=== PATIENT | female | born 1960 | race Caucasian/White ===

== ENCOUNTER → 2018-07-10 00:42 | Outpatient (CLI) | payer BC, SELFPAY ==
--- NOTE | 2018-07-10 09:04 | DI.REPORT_ITS ---
SYMPTOM/DIAGNOSIS: SCREENING, Z12.31 MAMMOGRAM: 07/10 Mammograms were interpreted according to the usual protocol including computer analysis with CAD system, tomosynthesis and C view imaging. The breasts are of moderate density with fairly symmetrical distribution of fibroglandular tissue. No dominant mass or clumped microcalcifications identified in either breast. The current examination is compared with previous examinations including May 2017 and there has been no gross interval change in appearance in comparison with the previous studies CONCLUSION: No specific evidence of malignancy at this time. Routine screening examinations are suggested at yearly intervals due to the family history of breast carcinoma. Category 1, breast density category B. MQSA ASSESSMENT OF FINDINGS: Negative. Category 1. Patient will receive a letter notifying them of these results. BI-RADS category B. There are scattered areas of fibroglandular density.
== END ==
PROVIDERS: PCP Family Medicine; Visit Provider Family Medicine
DX: Z12.31 Encounter for screening mammogram for malignant neoplasm of breast (principal); Z80.3 Family history of malignant neoplasm of breast
CPT/HCPCS: 77063; 77067

== ENCOUNTER 2019-05-23 09:11 | Emergency (ER) | payer BC, SELFPAY ==
[2019-05-23 09:15] VITALS: BP 136/80; PULSE 97; RESP 12; TEMP 36.8; O2SAT 100
--- NOTE | 2019-05-23 09:36 | W.ED.GENAD ---
Discharge Plan Disposition Patient Disposition: HOME Condition: Stable Discharge Details Chief Complaint: Allergic Clinical Impression: Bee sting reaction, Cellulitis Primary Care Provider: Mejia Peters ED Provider: Lorenza Gama Home Meds and New Rx's Prescriptions: New methylprednisolone [Medrol (Elías)] 4 mg tablets,dose pack See Rx Instructions .ROUTE .COMPLEX Qty: 21 RF: 0 amoxicillin-pot clavulanate [Augmentin] 875-125 mg tablet 1 tab PO BID 7 Days Qty: 14 RF: 0 Continued multivitamin [Once Daily] 1 EACH tablet 1 tab PO DAILY RF: 0 Discharge Instructions Instructions: Cellulitis (ED), Insect Bite or Sting (ED) Additional Instructions: Take the steroids and antibiotics until finished. Rest, ice and elevate right upper extremity several times daily for 20 minutes at at time. Call your primary care doctor Saturday morning to schedule follow-up appointment for reevaluation. Return immediately to the emergency department if you develop any worsening or new concerning symptoms of fever, chills, worsening redness, pain or swelling. Discharge Data Discharge Physician: Lorenza Gama Medical Decision Making 59-year-old female presents with redness, swelling and pain in her right wrist and forearm near an area of a bee sting 2 days ago. Denies any fever, chills. No foreign bodies noted to area. She has a mildly tender, blanching, erythematous, with faint irregular borders on right distal medial forearm extending from wrist to mid forearm. There are tiny small vesicles consistent with likely a contact dermatitis due to the Benadryl cream. No abscesses noted. No signs of compartment syndrome. Neurovascularly intact. No open wounds. Appears likely consistent with a local inflammation and now early cellulitis. Denies an allergy to amoxicillin or penicillin and states she has tolerated this in the past. We will send home with a prescription for Medrol Dosepak and Augmentin. Instructed on gentle hygiene care to area, rest, ice, elevate, follow-up with the primary care doctor for reevaluation and to return here if worse. Skin markings were placed around the edges of rash. HPI General Mode of arrival: ambulatory. Date/Time Provider Initiated Documentation: 05/23/19 09:25. Limitations to Documentation: no limitations. Information obtained by: patient. HPI Narrative: Patient is a 59-year-old female presents to the ED with a complaint of bee sting reaction to her right wrist and forearm since 2 bee stings 2 days ago. 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 Patient states she was able to remove both stingers. She states since the bee sting with she has developed worsening redness, swelling, itching and now has some pain around the area. She denies any fever, chills or body aches. She denies any other new exposures. She states she applied topical Benadryl cream and developed bumps in this area so stopped using it. Related Data Home Medications Medication Instructions Recorded Confirmed multivitamin [Once Daily] 1 tab PO DAILY 02/16/13 05/23/19 amoxicillin-pot clavulanate 1 tab PO BID 7 Days #14 tab 05/23/19 [Augmentin] methylprednisolone [Medrol (Elías)] See Rx Instructions .ROUTE 05/23/19 .COMPLEX #21 dose pk Previous Rx's Medication Instructions Recorded amoxicillin-pot clavulanate 1 tab PO BID 7 Days #14 tab 05/23/19 [Augmentin] methylprednisolone [Medrol (Elías)] See Rx Instructions .ROUTE 05/23/19 .COMPLEX #21 dose pk Allergies Allergy/AdvReac Type Severity Reaction Status Date / Time beeswax Allergy Severe Anaphylaxsi Unverified 05/23/19 09:17 s honey Allergy Severe Anaphylaxsi Unverified 05/23/19 09:17 s adhesive Allergy Intermediate Skin Rash Unverified 05/23/19 09:17 cephalexin [Cephalexin] Allergy Intermediate Skin Rash Unverified 05/23/19 09:17 chlordiazepoxide Allergy Intermediate Skin Rash Unverified 05/23/19 09:17 doxycycline Allergy Intermediate Skin Rash Unverified 05/23/19 09:17 codeine [Codeine] AdvReac Intermediate Hallucinati Unverified 05/23/19 09:17 ons General Stated Complaint: Allergic AGUSTINA: 4 Review of Systems Review of Systems All systems reviewed & are unremarkable except as noted in HPI and below Constitutional Reports as per HPI, Denies chills and Denies fever(s) Eyes Denies blurry vision ENT Denies dizziness, Denies sore throat and Denies throat swelling Cardiovascular Denies chest pain and Denies dyspnea Respiratory Denies cough and Denies dyspnea Gastrointestinal Denies abdominal pain, Denies diarrhea and Denies vomiting Genitourinary Denies hematuria and Denies dysuria Musculoskeletal Denies back pain and Denies numbness Integumentary/Breasts Reports lesions and Reports rash Neurologic Denies dizziness, Denies focal weakness and Denies numbness Allergic/Immunologic Denies throat swelling [facility] Medical History No significant past medical history (Acute) Surgical History Cervical Procedure Colonoscopy - IV Sedation (05/11/13) Tonsillectomy Family History Mother Diabetes Essential hypertension Depression Heart disease Hyperlipidemia Neoplasm Stroke Father Diabetes Essential hypertension Heart disease Hyperlipidemia Sister Diabetes Essential hypertension Depression Hyperlipidemia Grandfather Heart disease Grandfather Alcohol abuse Heart disease Grandmother Diabetes Essential hypertension Heart disease Hyperlipidemia Stroke Grandmother Diabetes Heart disease Neoplasm Daughter Heart disease Social History Smoking/Tobacco Use Status: Former Tobacco Use Drug use: Never Do you feel safe at home: Yes Do you feel safe in your relationship?: Yes Exam Const General: cooperative, healthy appearing and no acute distress HENMT Head: normal to inspection Mouth: oral mucosae normal Eyes General: appearance normal, both eyes and all related structures Neck Neck: normal visual inspection Resp Effort & Inspection: normal respiratory effort and able to speak in complete sentences Cardio Rate: regular rate Skin General skin exam: no rashes or lesions noted Neuro General: alert, awake and oriented x3 Motor: muscle tone normal throughout Extrem Elbow/forearm/wrist images: 1. Irregular borders, blanching, erythema, tender, minimally indurated. Minimal pustules c/w allergic/irritant dermatitis reaction on lateral aspect. 2. Irregular borders, blanching, erythema, tender, minimally indurated. Minimal pustules c/w allergic/irritant dermatitis reaction on lateral aspect Other: Compartments soft R forearm. Psych Appearance: grossly normal Affect: normal affect Course Vital Signs Temperature 98.2 F 05/23/19 09:15 Pulse 97 H 05/23/19 09:15 Respiratory Rate 12 05/23/19 09:15 Blood Pressure 136/80 05/23/19 09:15 Pulse Oximetry 100 05/23/19 09:15 Temperature 98.2 F 05/23/19 09:15 Temperature Source Temporal Artery Scan 05/23/19 09:15 Pulse 97 H 05/23/19 09:15 Respiratory Rate 12 05/23/19 09:15 Respiratory Effort Non-Labored 05/23/19 09:21 Respiratory Pattern Normal 05/23/19 09:21 Blood Pressure 136/80 05/23/19 09:15 Blood Pressure Position Sitting 05/23/19 09:15 Pulse Oximetry 100 05/23/19 09:15 Oxygen Delivery Method Room Air 05/23/19 09:15 Oxygen Flow Rate 0 05/23/19 09:15 Pain Level 3 05/23/19 09:15
== END 2019-05-23 09:49 | disposition home or self-care (01) ==
PROVIDERS: Emergency Provider Physician Assistant; PCP Family Medicine
DX: T63.441A Toxic effect of venom of bees, accidental (unintentional), initial encounter (principal); L03.113 Cellulitis of right upper limb
CPT/HCPCS: 99283

== ENCOUNTER 2019-09-29 00:38 | Outpatient (CLI) | payer BC, SELFPAY ==
--- NOTE | 2019-09-29 16:00 | DI.DEXA_ITS ---
EXAM: XR DEXA BONE DENSITY W/WO VANESSA INDICATION: screening for osteoporosis, Z13.820. COMPARISON: No exams were available for comparison TECHNIQUE: 2D digital imaging was performed. FINDINGS: The lateral spine shows no compression deformities. Evaluation of the left hip shows a total T-score of -0.1 and a Z-score of 0.7. This is within normal limits. Evaluation of the lumbar spine shows a total T-score of -0.7 and a Z-score of 0.5. This is also with in normal limits. IMPRESSION: No evidence of osteoporosis.
--- NOTE | 2019-09-29 16:15 | DI.MAMMO_ITS ---
EXAM: MG MAMMO SCREENING CLINICAL HISTORY: screening, Z12.39 TECHNIQUE: Bilateral full field digital CC and MLO mammographic images were obtained with 3D tomosyn thesis and utilizing computer aided detection (CAD). COMPARISON: Available for comparison. FINDINGS: Masses/Architectural Distortion: None seen. Microcalcifications: No suspicious pleomorphic-type are seen. Skin Thickening/Nipple Retraction: None. IMPRESSION: 1. No significant interval change with no specific features of malignancy noted. 2. Unless there is more urgent need, screening mammography is recommended, as per [place] [employer] guidelines. ACR BI-RAD Category- 1 Negative Breast Density - Category B - Scattered areas of fibroglandular density A negative radiographic report should not delay biopsy if a dominant or clinically suspicious mass is present. Up to ten percent of cancers are not identified on mammography. A negative report may reinforce clinical impression. Adenosis and dense breasts may obscure an underlying neoplasm. False positive reports average 6 to 10%. Patient will receive a letter notifying them of these results.
== END 2019-09-29 00:58 ==
PROVIDERS: PCP Family Medicine; Visit Provider Family Medicine
DX: Z12.31 Encounter for screening mammogram for malignant neoplasm of breast (principal); Z13.820 Encounter for screening for osteoporosis
CPT/HCPCS: 77063; 77067; 77080

== ENCOUNTER 2020-08-03 04:01 | Outpatient (CLI) | payer BC, SELFPAY ==
[2020-08-03 09:01] LABS: Anion Gap 5.4 mmol/L (3-11); BUN 18 mg/dL (7-18); CO2 31.6 mmol/L (21.0-32.0); CREATININE 0.82 mg/dL (0.55-1.02); Calcium 9.1 mg/dL (8.5-10.1); Calculated LDL 138 mg/dL (<100); Chloride 106 mmol/L (98-107); Cholesterol 242 mg/dL (<200); Glucose 94 mg/dL (74-106); HDL Cholesterol 95 mg/dL (40-60); Potassium 4.7 mmol/L (3.5-5.1); Sodium 143 mmol/L (136-145); Triglyceride 47 mg/dL (<150)
== END 2020-08-03 04:21 ==
PROVIDERS: PCP Nurse Practitioner; Visit Provider Family Medicine
DX: Z00.00 Encounter for general adult medical examination without abnormal findings (principal); Z13.220 Encounter for screening for lipoid disorders; Z13.228 Encounter for screening for other metabolic disorders
CPT/HCPCS: 36415; 80048; 80061

== ENCOUNTER 2020-08-04 01:14 | Outpatient (CLI) | payer BC, SELFPAY ==
--- NOTE | 2020-08-04 10:12 | DI.US_ITS ---
APPROVED REPORT EXAM: Comprehensive 2D, Doppler, and color-flow Echocardiogram Patient Location: Out-Patient Unit Coordinator: Alondra Herrera RDCS (AE) Indications: Aortic stenosis congenital Other Information Study Quality: Good Conclusion Left Ventricle : The left ventricle is normal size. The left ventricular systolic function is normal. The left ventricular ejection fraction is within the normal range. There is normal left ventricular wall thickness. There is normal LV segmental wall motion. LVEF is 56%. Right Ventricle : The right ventricle is normal size. The right ventricular systolic function is norm al. The RVSP is 20.9 mmHg. Atria : The left atrium size is normal. The right atrium size is normal. Aortic Valve : Aortic valve is bicuspid. No aortic regurgitation is present. There is no mild valvula r stenosis. Great Vessels : The aortic root is normal in size. The ascending aorta is moderately dilated (4.1cm). Aortic arch is normal in caliber. IVC is normal in size and collapses >50% with inspiration. Compared to prior echocardiogram, there is no significant change. Wall motion Left Ventricle The left ventricle is normal size. The left ventricular systolic function is normal. The left ventric ular ejection fraction is within the normal range. There is normal left ventricular wall thickness. T here is normal LV segmental wall motion. The left ventricular diastolic function is normal. There is no ventricular septal defect visualized. LVEF is 56%. Right Ventricle The right ventricle is normal size. The right ventricular systolic function is normal. The RVSP is 20 .9 mmHg. Atria The left atrium size is normal. The right atrium size is normal. The interatrial septum is intact wit h no evidence for an atrial septal defect. Aortic Valve Aortic valve is bicuspid. There is mild aortic valvular stenosis. No aortic regurgitation is present. Mitral Valve The mitral valve is normal in structure. No evidence of mitral valve stenosis. Trace mitral regurgita tion. Tricuspid Valve The tricuspid valve is normal in structure. There is no tricuspid valve stenosis. Trace tricuspid reg urgitation. Pulmonic Valve The pulmonary valve is normal in structure. There is no pulmonic valvular stenosis. Trace pulmonic re gurgitation. Great Vessels The aortic root is normal in size. The ascending aorta is moderately dilated (4cm). Aortic arch is no rmal in caliber. IVC is normal in size and collapses >50% with inspiration. Pericardium There is no pericardial effusion. 2D Dimensions IVSD d PLAX 0.82 cm F: 0.6-1.0 LV Vol A2C d MOD 92.2 mL LVPW d PLAX 0.81 cm F: 0.6 - 1.0 LV Vol A4C d MOD 118.3 mL LVID d PLAX 4.54 cm F: 3.8 - 5.2 LA vol/ BSA A2C s A-L 19.6 mL/m2 LVDs 3.15 cm F: 2.2 - 3.5 LA vol/ BSA A4C s A-L 15.0 mL/m2 Ao Root d 3.07 cm F: 2.7 - 3.3 LA Vol/ BSA Biplane s A-L 17.5 mL/m2 RA Area A4C 16.77 cm2 LA Area A4C s MOD 11.77 cm2 RA Vol/ BSA A4C s A-L 26.2 mL/m2 LA Area A2C s MOD 13.68 cm2 Ao Asc Diam d 4.10 cm F: 2.3 - 3.1 LV EF A4C MOD 56.1 % LV EF Teichholz 57.7 % LV EF A2C MOD 56.3 % LVEF (Hayward's) 57.42 % F: 54 - 74 LV EF Biplane MOD 57.4 % LV Volume 84.99 mL F: 46 - 106 SV 63.69 mL LV Volume Index 45.20 mL/m2 F: 29 - 61 SV Index 33.90 mL/m2 LV Vol Biplane MOD 110.9 mL FS 30.25 % M-Mode TAPSE 2.16 cm (M/F) >1.7 LV Diastology MV E' medial 0.076 (>0.07 m/s) E/A Ratio 0.7 LV E/e MED 7.30 (<14) MV E Vmax 0.56 (0.4-1.3 m/s) MV E' lateral 0.059 (>0.1 m/s) MV A Vmax 0.80 (0.4-1.3 m/s) LV E/e LAT 9.50 (<14) MV E/A Ratio 0.69 MV E/E' medial 7.32 MV E/E' lateral 9.52 Aortic Valve LVOT Area 3.16 cm2 AoV Area Vmax 1.60 cm2 LVOT Vmax 0.88 m/s AoV Area/ BSA (Vmax) 0.85 cm2/m2 LVOT Mean Omar. 0.57 m/s LOULOU Mean Omar. 1.38 cm2 LVOT Peak Grad 3.1 mmHg LOULOU Mean Omar. Index 0.73 cm2/m2 LVOT Mean Grad 1.5 mmHg LVOT VTI 0.195 m LVOT Diam s 2.00 cm AoV Vmax 1.74 m/s Velocity Ratio 0.50 AoV Mean Omar. 1.30 m/s AoV Peak Grad 12.1 mmHg LVOT SV 61.77 mL AoV Mean Grad 7.4 mmHg AoV VTI 0.392 m AoV Area VTI 1.58 cm2 AoV Area/ BSA (VTI) 0.84 cm/m2 Mitral Valve MV DT 232 (160-240 msec) MV PHT 67 msec MV Area PHT 3.27 cm2 Pulmonary Valve PV Vmax 0.74 (0.5-1.5 m/s) RVOT Peak Gr. 1.80 mmHg PV Peak Grad 2.2 mmHg RVOT Mean Gr. 0.90 mmHg PV Mean Grad 1.4 mmHg RVOT VTI 0.137 m PV VTI 0.158 m RVOT Vmax 0.67 m/s Tricuspid Valve TR Peak Grad 17.8 mmHg TR Vmax 2.11 m/s RA Pressure 3.00 mmHg RVSP (TR) 20.9 mmHg
== END 2020-08-04 01:34 ==
PROVIDERS: PCP Nurse Practitioner; Visit Provider Family Medicine
DX: I77.810 Thoracic aortic ectasia (principal); Q23.0 Congenital stenosis of aortic valve; Q23.1 Congenital insufficiency of aortic valve
CPT/HCPCS: 93306

== ENCOUNTER 2020-08-19 13:48 | Outpatient (REF) | payer BC, SELFPAY ==
[2020-08-22 14:57] LABS: Chlamydia Result Negative (Negative); GC Result Negative (Negative)
== END 2020-08-19 14:08 ==
LOC: LBN 13:48
PROVIDERS: PCP Nurse Practitioner; Visit Provider Physician Assistant
DX: R30.0 Dysuria (principal); N89.8 Other specified noninflammatory disorders of vagina
CPT/HCPCS: 87077; 87491; 87591; 87086; 87480; 87510; 87660

== ENCOUNTER 2020-09-06 22:16 | Outpatient (REF) | payer BC, SELFPAY | END 2020-09-06 22:36 | LOC: NCHCN 22:16 | PROVIDERS: PCP Nurse Practitioner; Visit Provider Physician Assistant | DX: N76.0 Acute vaginitis (principal); B96.89 Other specified bacterial agents as the cause of diseases classified elsewhere | CPT/HCPCS: 87480; 87510; 87660 ==

== ENCOUNTER 2020-10-11 01:29 | Outpatient (CLI) | payer BC, SELFPAY ==
--- NOTE | 2020-10-11 | DI.MAMMO_ITS ---
EXAM: MAMMO SCREENING CLINICAL HISTORY: SCREENING, Z12.39 TECHNIQUE: Mammograms were interpreted according to the usual protocol including computer analysis w [employer] CAD system, tomosynthesis and C-view imaging. COMPARISON: FINDINGS: Breasts are of moderate density with fairly symmetrical distribution of fibroglandular tissue. No do minant mass or clumped microcalcification is identified in either breast. The current examination is compared with prior studies including September 2019 and there has been no gross interval change in a ppearance in comparison with the previous examinations. IMPRESSION: No specific evidence of malignancy at this time. Routine screening examinations are suggested at yea rly intervals due to the family history of breast carcinoma. BI-RADS Category 1 - Negative Breast Density - Category B - Scattered areas of fibroglandular density
== END 2020-10-11 01:49 ==
PROVIDERS: PCP Nurse Practitioner; Visit Provider Obstetrics & Gynecology
DX: Z12.31 Encounter for screening mammogram for malignant neoplasm of breast (principal); Z80.3 Family history of malignant neoplasm of breast
CPT/HCPCS: 77063; 77067

== ENCOUNTER 2020-11-30 04:18 | Outpatient (CLI) | payer BC, SELFPAY ==
[2020-12-01 15:10] LABS: COVID-19 RT-PCR UVMMC Result Negative (Negative)
== END 2020-11-30 04:38 ==
PROVIDERS: PCP Nurse Practitioner; Visit Provider Nurse Practitioner
DX: Z20.822 Contact with and (suspected) exposure to COVID-19 (principal)
CPT/HCPCS: U0003

== ENCOUNTER 2021-10-17 01:28 | Outpatient (CLI) | payer BC, SELFPAY ==
--- NOTE | 2021-10-17 16:06 | DI.MAMMO_ITS ---
Exam(s) MAMMO SCREENING EXAM: MAMMO SCREENING CLINICAL HISTORY: SCREENING, Z12.31 TECHNIQUE: Bilateral full field digital CC and MLO mammographic images were obtained with 3D tomosyn thesis and utilizing computer aided detection (CAD). COMPARISON: Available for comparison. FINDINGS: Masses/Architectural Distortion: None seen. Microcalcifications: No suspicious pleomorphic-type are seen. Skin Thickening/Nipple Retraction: None. IMPRESSION: 1. No significant interval change with no specific features of malignancy noted. 2. Unless there is more urgent need, screening mammography is recommended, as per [place] [employer] guidelines. BI-RADS Category 1 - Negative Breast Density - Category B - Scattered areas of fibroglandular density Breast density category C or D implies that the patient has dense breast tissue. Dense breast tissue is very common and is not abnormal but dense breast tissue can make it harder to find cancer on a ma mmogram. Also, dense breast tissue may increase their breast cancer risk. This information about the result of the mammogram report was provided to the patient to raise their awareness. Use this report when you speak with the patient about their risks for breast cancer, which includes their family hist ory. At that time, you may recommend for more screening tests (Ultrasound or MRI) as they might be us eful based on their risk. A negative radiographic report should not delay biopsy if a dominant or clinically suspicious mass is present. Up to ten percent of cancers are not identified on mammography. A negative report may reinforce clinical impression. Adenosis and dense breasts may obscure an underlying neoplasm. False positive reports average 6 to 10%. Patient will receive a letter notifying them of these results.
== END 2021-10-17 01:48 ==
PROVIDERS: PCP Nurse Practitioner; Visit Provider Obstetrics & Gynecology
DX: Z12.31 Encounter for screening mammogram for malignant neoplasm of breast (principal)
CPT/HCPCS: 77063; 77067

== ENCOUNTER 2021-11-20 16:21 | Outpatient (REF) | payer SELFPAY ==
[2021-11-21 16:45] LABS: COVID-19 RT-PCR UVMMC Result Negative (Negative)
== END 2021-11-20 16:22 | disposition home or self-care (01) ==
LOC: LBN 16:21
PROVIDERS: PCP Nurse Practitioner; Visit Provider Family Medicine
DX: Z20.822 Contact with and (suspected) exposure to COVID-19 (principal)
CPT/HCPCS: U0003

== ENCOUNTER 2022-06-05 18:52 | Outpatient (CLI) | payer BC, SELFPAY ==
[2022-06-05 13:37] LABS: Ferritin 222 ng/mL (8-252)
== END 2022-06-05 18:53 | disposition home or self-care (01) ==
LOC: LBO 18:59
PROVIDERS: PCP Nurse Practitioner; Visit Provider Nurse Practitioner
DX: M25.541 Pain in joints of right hand (principal); G47.33 Obstructive sleep apnea (adult) (pediatric); G47.61 Periodic limb movement disorder
CPT/HCPCS: 36415; 82728

== ENCOUNTER 2022-08-14 03:05 | Outpatient (CLI) | payer BC, SELFPAY ==
[2022-08-14 12:52] LABS: Anion Gap 7.3 mmol/L (3-11); BUN 14 mg/dL (7-18); CO2 29.7 mmol/L (21.0-32.0); CREATININE 0.8 mg/dL (0.55-1.02); Calcium 9.1 mg/dL (8.5-10.1); Calculated LDL 111 mg/dL (<100); Chloride 105 mmol/L (98-107); Cholesterol 218 mg/dL (<200); Glucose 87 mg/dL (74-106); HDL Cholesterol 89 mg/dL (40-60); Sodium 142 mmol/L (136-145); Triglyceride 90 mg/dL (<150)
[2022-08-14 12:58] LABS: Hemoglobin A1C 5.7 % (<5.7)
== END 2022-08-14 03:06 | disposition home or self-care (01) ==
LOC: LOS 03:05
PROVIDERS: PCP Nurse Practitioner; Visit Provider Nurse Practitioner Family
DX: Z00.00 Encounter for general adult medical examination without abnormal findings (principal); E78.5 Hyperlipidemia, unspecified; Z13.1 Encounter for screening for diabetes mellitus
CPT/HCPCS: 36415; 80048; 80061; 83036

== ENCOUNTER → 2022-10-23 02:47 | Outpatient (CLI) | payer BC, SELFPAY ==
--- NOTE | 2022-10-23 | DI.MAMMO_ITS ---
Exam(s) MAMMO SCREENING EXAM: MAMMO SCREENING CLINICAL HISTORY: SCREENING, Z80.3, FAMILY H/O BREAST CA TECHNIQUE: Bilateral full field digital CC and MLO mammographic images were obtained with 3D tomosyn thesis and utilizing computer aided detection (CAD). COMPARISON: Available for comparison. FINDINGS: Masses/Architectural Distortion: None seen. Microcalcifications: No suspicious pleomorphic-type are seen. Skin Thickening/Nipple Retraction: None. IMPRESSION: 1. No significant interval change with no specific features of malignancy noted. 2. Unless there is more urgent need, screening mammography is recommended, as per [employer] [employer] guidelines. BI-RADS Category 1 - Negative Breast Density - Category B - Scattered areas of fibroglandular density Breast density category C or D implies that the patient has dense breast tissue. Dense breast tissue is very common and is not abnormal but dense breast tissue can make it harder to find cancer on a ma mmogram. Also, dense breast tissue may increase their breast cancer risk. This information about the result of the mammogram report was provided to the patient to raise their awareness. Use this report when you speak with the patient about their risks for breast cancer, which includes their family hist ory. At that time, you may recommend for more screening tests (Ultrasound or MRI) as they might be us eful based on their risk. A negative radiographic report should not delay biopsy if a dominant or clinically suspicious mass is present. Up to ten percent of cancers are not identified on mammography. A negative report may reinforce clinical impression. Adenosis and dense breasts may obscure an underlying neoplasm. False positive reports average 6 to 10%. Patient will receive a letter notifying them of these results.
== END ==
PROVIDERS: PCP Nurse Practitioner Family; Visit Provider Obstetrics & Gynecology
DX: Z12.31 Encounter for screening mammogram for malignant neoplasm of breast (principal); Z80.3 Family history of malignant neoplasm of breast
CPT/HCPCS: 77063; 77067

== ENCOUNTER 2022-11-16 15:45 | Emergency (ER) | payer BC, SELFPAY ==
[2022-11-16] VITALS (46 sets, daily range): BP systolic 134–156; BP diastolic 64–90; PULSE 66–87; RESP 15–25; TEMP 36.9; O2SAT 100
--- NOTE | 2022-11-16 15:45 | RT.EKG_ITS ---
APPROVED REPORT Exam: Resting ECG Reason for Exam: Chest pain Patient Location: E HR:77 bpm ECG Measurements Heart Rate 77 AXIS TN 190 P 9 QRSd 101 QRS -15 QT 418 T 1 QTc 473 Conclusion Sinus rhythm. Probable left ventricular hypertrophy InferiorQ >35mS, II III aVF
--- NOTE | 2022-11-16 16:15 | DI.RAD_ITS ---
Exam(s) XR CHEST 2V PA LATERAL EXAM: XR CHEST 2V PA LATERAL CLINICAL HISTORY: Chest pain TECHNIQUE: 2D digital imaging was performed. COMPARISON: CR PORTABLE CHEST ONE VIEW from 02/13/2018 FINDINGS: HEART: Normal size. Aorta: Not dilated. PULMONARY VASCULATURE: Normal. LUNGS: Clear. PLEURAL SPACE: No pleural effusion or pneumothorax. BONE:Unremarkable for age. IMPRESSION: No acute abnormality. DATA REPOSITORY: RADIATION DOSE DELIVERED:
[2022-11-16 16:20] LABS: Abs Immature Grans 0.02 10^3/uL (0.0-0.06); Absolute Basophil Count 0.04 10^3/uL (0.0-0.2); Absolute Eosinophil Count 0.13 10^3/uL (0.0-0.7); Absolute Lymphocyte Count 1.38 10^3/uL (1.2-3.4); Absolute Monocyte Count 0.52 10^3/uL (0.1-0.8); Absolute Neutrophil Count 6.38 10^3/uL (1.2-6.7); Basophils % 0.5; Eosinophils % 1.5; HCT 43.8 % (36.0-46.0); HGB 14.3 g/dL (11.2-15.7); Immature Grans % 0.2; Lymphocytes % 16.3; MCH 29.9 pg (27.0-33.0); MCHC 32.6 % (32.0-36.0); MCV 92 fL (80-95); Monocytes % 6.1; Neutrophils % 75.4; Platelet Count 216 10^3/uL (130-400); RBC 4.78 10^6/uL (3.93-5.22); RDW 13.4 % (11.7-14.6); RDW-SD 45.8 fL; WBC 8.47 10^3/uL (4.4-10.8)
--- NOTE | 2022-11-16 16:31 | W.ED.GENAD ---
Discharge Plan Disposition Patient Disposition: Home Condition: Stable Discharge Details Clinical Impression: Chest pain made worse by breathing Primary Care Provider: Morris Fisher ED Provider: Caitlyn Hernández Home Meds and New Rx's Prescriptions: Continued magnesium 250 mg tablet 250 mg PO DAILY cholecalciferol (vitamin D3) 25 mcg (1,000 unit) capsule 25 mcg PO DAILY turmeric root extract 500 mg capsule 500 mg PO DAILY omega-3 fatty acids 500 mg capsule 500 mg PO DAILY No Action loratadine [Claritin] 10 mg tablet 10 mg PO DAILY rizatriptan 10 mg tablet 10 mg PO ONCE PRN (Reason: migraine headache) Qty: 60 3RF Rx Instructions: take 1 tab at onset of headache; if no relief may repeat 1 tab after at least 2 hrs; max = 3 tabs/24 hr PO epinephrine [EpiPen] 0.3 mg/0.3 mL auto-injector 0.3 mg IM ONCE PRN (Reason: anaphylaxis) Qty: 1 3RF methocarbamol 500 mg tablet 500 mg PO QID PRN azithromycin 250 mg tablet See Rx Instructions PO .COMPLEX 5 Days Qty: 6 0RF Rx Instructions: For 250 mg dose pack: take 500 mg today (day 1), then 250 mg for 4 days (days 2-5) PO multivitamin [Once Daily] 1 EACH tablet 1 tab PO DAILY Discharge Instructions Instructions: Chest Pain (ED) Additional Instructions: At this time the cardiac work-up is within normal limits. No evidence for blood clots in your lungs, no pneumonia, your troponins are both negative. Follow up with primary care provider in 3-5 days. Return to ED sooner if any worsening or concerns. Increase oral fluids. Please take Tylenol or Ibuprofen with food every 4-6 hours as needed for pain and swelling. Referrals: Morris Fisher, [employer] [Primary Care Provider] - 1 week Medical Decision Making 62-year-old female presents with chest pain/midepigastric pain x3 days with breathing. Also reports diarrhea for the last 1-2 days. Denies any nausea vomiting shortness of breath. Cardiac work-up ordered including serial troponins and chest x-ray. Patient recently had a negative echo cardiogram in September. Chest x-ray within normal limits. Initial labs are within normal limits BUN slightly high at 21, initial troponin less than 50, will add on a D-dimer. CBC shows no leukocytosis, D-dimer 400, electrolytes are all within normal limits BUN slightly elevated 21 creatinine 0.9, serial troponins less than 50 for high-sensitivity troponin, no other significant abnormalities. Chest x-ray is read as no acute abnormality please see below. Patient discharged with follow-up care to follow-up with her PCP discussed strict return instructions she verbalizes understanding. Patient requested copies of her labs and EKG which were given to her. This text was generated using luxustravel.esation system, please disregard any oddities of phrase or misspellings. Medical Records Medical records reviewed: Yes I reviewed the patient's medical records. Imaging Data Radiologic Study: Imaging: X-Ray Radiologist's impression: CLINICAL HISTORY: Chest pain TECHNIQUE: 2D digital imaging was performed. COMPARISON: CR PORTABLE CHEST ONE VIEW from 02/13/2018 FINDINGS: HEART: Normal size. Aorta: Not dilated. PULMONARY VASCULATURE: Normal. LUNGS: Clear. PLEURAL SPACE: No pleural effusion or pneumothorax. BONE:Unremarkable for age. IMPRESSION: No acute abnormality. Lab Data Lab results reviewed: Yes I reviewed the patient's lab results. Labs: Laboratory Tests Range/Units 11/16/22 11/16/22 11/16/22 16:10 16:10 16:10 WBC (4.4-10.8) 10^3/uL 8.47 RBC (3.93-5.22) 10^6/uL 4.78 Hgb (11.2-15.7) g/dL 14.3 Hct (36.0-46.0) % 43.8 MCV (80-95) fL 92 MCH (27.0-33.0) pg 29.9 MCHC (32.0-36.0) % 32.6 RDW (11.7-14.6) % 13.4 Plt Count (130-400) 10^3/uL 216 MPV (8.0-11.0) fL 11.0 Immature Gran % 0.2 Neutrophils % 75.4 Lymphocytes % 16.3 Monocytes % 6.1 Eosinophils % 1.5 Basophils % 0.5 Nucleated RBC % (0.0-0.3) % 0.0 Absolute Neutrophils (1.2-6.7) 10^3/uL 6.38 Absolute Lymphocytes (1.2-3.4) 10^3/uL 1.38 Absolute Monocytes (0.1-0.8) 10^3/uL 0.52 Absolute Eosinophils (0.0-0.7) 10^3/uL 0.13 Absolute Basophils (0.0-0.2) 10^3/uL 0.04 D-Dimer (<500) ng/mlFEU 400 Sodium (136-145) mmol/L 143 Potassium (3.5-5.1) mmol/L 3.6 Chloride (98-107) mmol/L 104 Carbon Dioxide (21.0-32.0) mmol/L 31.0 Anion Gap (3-11) mmol/L 8.0 BUN (7-18) mg/dL 21 H Creatinine (0.55-1.02) mg/dL 0.9 Est GFR (CKD-EPI 2020) (mL/min/1.73m2) 73.19 Glucose (74-106) mg/dL 91 Calcium (8.5-10.1) mg/dL 9.7 Magnesium (1.8-2.4) mg/dL 2.3 Total Bilirubin (0.2-1.0) mg/dL 0.6 AST (15-37) U/L 17 ALT (14-59) U/L 28 Alkaline Phosphatase (46-116) U/L 111 Troponin I (<or=60) ng/L < 50 Total Protein (6.4-8.2) g/dL 8.8 H Albumin (3.4-5.0) g/dL 4.5 Range/Units 11/16/22 19:16 WBC (4.4-10.8) 10^3/uL RBC (3.93-5.22) 10^6/uL Hgb (11.2-15.7) g/dL Hct (36.0-46.0) % MCV (80-95) fL MCH (27.0-33.0) pg MCHC (32.0-36.0) % RDW (11.7-14.6) % Plt Count (130-400) 10^3/uL MPV (8.0-11.0) fL Immature Gran % Neutrophils % Lymphocytes % Monocytes % Eosinophils % Basophils % Nucleated RBC % (0.0-0.3) % Absolute Neutrophils (1.2-6.7) 10^3/uL Absolute Lymphocytes (1.2-3.4) 10^3/uL Absolute Monocytes (0.1-0.8) 10^3/uL Absolute Eosinophils (0.0-0.7) 10^3/uL Absolute Basophils (0.0-0.2) 10^3/uL D-Dimer (<500) ng/mlFEU Sodium (136-145) mmol/L Potassium (3.5-5.1) mmol/L Chloride (98-107) mmol/L Carbon Dioxide (21.0-32.0) mmol/L Anion Gap (3-11) mmol/L BUN (7-18) mg/dL Creatinine (0.55-1.02) mg/dL Est GFR (CKD-EPI 2020) (mL/min/1.73m2) Glucose (74-106) mg/dL Calcium (8.5-10.1) mg/dL Magnesium (1.8-2.4) mg/dL Total Bilirubin (0.2-1.0) mg/dL AST (15-37) U/L ALT (14-59) U/L Alkaline Phosphatase (46-116) U/L Troponin I (<or=60) ng/L < 50 Total Protein (6.4-8.2) g/dL Albumin (3.4-5.0) g/dL HPI General Mode of arrival: ambulatory. Date/Time Provider Initiated Documentation: 11/16/22 15:58. Limitations to Documentation: no limitations. Information obtained by: patient, RN notes reviewed and old records reviewed. HPI Narrative: 62-year-old female with past medical history of TIA, osteoarthritis, obstructive sleep apnea, hyperlipidemia, presents to the ER with chief complaint of 3 days of chest pain/midepigastric pain with breathing. She was seen at [facility] prior to arrival and was diagnosed with sinusitis for URI type symptoms and prescribed amoxicillin which she has not started taking yet. She has had a negative in September 2022 and she has had outpatient sleep studies and stress tests which she reports are all negative. She does not take aspirin due to bleeding. She endorses mild cough no fever no chills no other associated symptoms. Related Data Home Medications Medication Instructions Recorded Confirmed multivitamin (Once Daily tablet) 1 tab PO DAILY 02/16/13 11/16/22 omega-3 fatty acids 500 mg capsule 500 mg PO DAILY 08/03/21 11/16/22 turmeric root extract 500 mg 500 mg PO DAILY 08/03/21 11/16/22 capsule cholecalciferol (vitamin D3) 25 25 mcg PO DAILY 11/20/21 11/16/22 mcg (1,000 unit) capsule methocarbamol 500 mg tablet 500 mg PO QID PRN 11/20/21 11/16/22 epinephrine 0.3 mg/0.3 mL 0.3 mg (0.3 mL) IM ONCE PRN 08/08/22 11/16/22 injection, auto-injector (EpiPen) anaphylaxis #1 ea loratadine 10 mg tablet (Claritin) 10 mg PO DAILY 08/08/22 11/16/22 magnesium 250 mg tablet 250 mg PO DAILY 08/08/22 11/16/22 rizatriptan 10 mg tablet 10 mg PO ONCE PRN migraine 08/08/22 11/16/22 headache #60 tabs azithromycin 250 mg tablet See Rx Instructions PO .COMPLEX 5 11/16/22 11/16/22 days #6 tabs Previous Rx's Medication Instructions Recorded epinephrine 0.3 mg/0.3 mL 0.3 mg (0.3 mL) IM ONCE PRN 08/08/22 injection, auto-injector (EpiPen) anaphylaxis #1 ea rizatriptan 10 mg tablet 10 mg PO ONCE PRN migraine 08/08/22 headache #60 tabs azithromycin 250 mg tablet See Rx Instructions PO .COMPLEX 5 11/16/22 days #6 tabs Allergies Allergy/AdvReac Type Severity Reaction Status Date / Time beeswax Allergy Severe Anaphylaxsi Verified 11/16/22 15:17 s honey Allergy Severe Anaphylaxsi Verified 11/16/22 15:17 s venom-honey bee Allergy Severe Anaphylaxsi Verified 11/16/22 15:17 s adhesive Allergy Intermediate Skin Rash Verified 11/16/22 15:17 cephalexin [Cephalexin] Allergy Intermediate Skin Rash Verified 11/16/22 15:17 chlordiazepoxide Allergy Intermediate Skin Rash Verified 11/16/22 15:17 doxycycline Allergy Intermediate Skin Rash Verified 11/16/22 15:17 lavender (Lavandula Allergy Intermediate hives and Verified 11/16/22 15:17 angustifolia) swelling codeine [Codeine] AdvReac Intermediate Hallucinati Verified 11/16/22 15:17 ons lilacs AdvReac Severe swelling Uncoded 11/16/22 15:17 of face General Stated Complaint: Chest Pain AGUSTINA: 3 Review of Systems All systems reviewed & are unremarkable except as noted in HPI and below Cardiovascular Cardiovascular: Reports as per HPI, Reports chest pain, Reports chest pain at rest, Denies leg edema, Denies lightheadedness, Denies radiating jaw, neck or arm pain and Denies dyspnea Respiratory Respiratory: Reports cough, Denies hemoptysis, Denies excessive phlegm production and Denies dyspnea Gastrointestinal Gastrointestinal: Denies abdominal pain, Denies diarrhea, Denies nausea and Denies vomiting PFSH All Active Problems (Updated 11/16/22 @ 20:05 by Caitlyn Hernández NP) Chest pain made worse by breathing (Acute) Ascending aorta dilation (Chronic) Echo 2021 Prediabetes (Chronic) Hyperlipidemia (Chronic) Obstructive sleep apnea (Chronic) PSG 02/2022 Osteoarthritis (arthritis due to wear and tear of joints) (Chronic) History of stroke (Acute) 2019- discharged from neurology 2019 ([facility]) Migraine (Chronic) Tubular adenoma of colon (Chronic ~2019) Medical History Bilateral wrist pain (~06/15/19) Cellulitis Elbow locking Generalized headaches Patellofemoral syndrome of right knee (07/01/18) Right wrist tendinitis [facility] Tension headache (07/01/18) Surgical History Cervical Procedure AGE 33-CAUTERIZED CERVIX Colonoscopy - IV Sedation (05/11/13) DR. Vincent SIFUENTES; NORMAL EXAM Tonsillectomy AGE 15 Family History Mother Diabetes Essential hypertension Depression Heart disease PACEMAKER Hyperlipidemia Stroke Breast cancer Invasive lobular Father , 83 Diabetes Essential hypertension Heart disease Hyperlipidemia Sister Diabetes Essential hypertension Depression MILD Hyperlipidemia Maternal Grandfather , 49 Heart disease Alcohol abuse Paternal Grandfather , 63 Alcohol abuse Heart disease Maternal Grandmother , 63 Diabetes Essential hypertension Heart disease Hyperlipidemia Stroke Paternal Grandmother , 88 Diabetes Heart disease Cancer Tumor in stomach Daughter Heart disease PACEMAKER Social History Smoking/Tobacco Use Status: Former Tobacco Use tobacco type: cigarettes Second Hand Exposure: Yes (Past) Smoking risk assessment performed?: Yes Alcohol Intake: current Alcohol Intake frequency: a few times a month Alcohol type: hard liquor Drug use: Never Caregiver/Support person: No Household members: spouse Housing: house Communication Needs: Corrective Lenses Do you need help understanding health information?: Never Pets and animals: No Sexually active: Yes Do you think of yourself as: straight/heterosexual Current gender identity: female What is your relationship status?: How often do you talk on the phone with friends or family?: three or more times per week How often do you get together with friends or relatives?: once per week How often do you attend adventism or jewish services?: 1-3 times per year Do you belong to any clubs or organized social groups?: no Panel score (0-1 are the most socially isolated patients): 2 What type of physical activity do you participate in: walking, weight lifting and yoga Duration: 30-45 minutes/day Frequency: daily Leslie/Scientologist: Jew Special leslie needs: No Seatbelt use: always Helmet use: Yes Helmet use: always Drive intox or ride w/intox commercial collections driver: No Do you feel safe at home: Yes Do you feel safe in your relationship?: Yes Exam Narrative Exam Narrative: Constitutional: Alert and oriented x3. Appears stated age. Normal body habitus. Head: Normocephalic, no trauma. Eyes: Pupils PERRL, Red reflex noted, EOM's intact. Eyelids symmetrical without lesions, discharge, or swelling. ENT: Bilateral TM's WNL, External ear normal to inspection, no mastoid TTP, swelling, or erythema, Nasal turbinates WNL, no nasal discharge. Normal dentition, Posterior pharynx WNL, no exudate. Chest: RRR, Normal S1, S2, distal pulses intact. Resp: Lungs clear to auscultation bilaterally, no wheezes, rales, or rhonchi. Abdomen: Soft, non-distended, Normoactive bowel sounds all 4 quads. Musculoskeletal: Normal gait, 5/5 strength to all four extremities. Skin: No suspicious rashes or lesions. Capillary refill less than 2 sec. Neurologic: Cranial nerves II-XII intact. Alert and oriented x 3. Motor: No deficits noted. Sensory: Intact bilaterally all 4 extremities. Reflexes: DTR's intact bilaterally.. Hematologic/Lymphatic: No ecchymosis, no lymphadenopathy. Course Vital Signs Vital signs: Vital Signs Temperature 36.9 C 11/16/22 15:50 Pulse 82 11/16/22 15:50 Respiratory Rate 18 11/16/22 15:50 Blood Pressure 143/90 H 11/16/22 15:50 Pulse Oximetry 100 11/16/22 15:50 Temperature 36.9 C 11/16/22 15:50 Temperature Source Tympanic 11/16/22 15:50 Pulse 82 11/16/22 15:50 Respiratory Rate 18 11/16/22 15:50 Respiratory Effort 11/16/22 15:53 Blood Pressure 143/90 H 11/16/22 15:50 Blood Pressure Position Supine 11/16/22 15:50 Pulse Oximetry 100 11/16/22 15:50 Oxygen Delivery Method Room Air 11/16/22 15:50 Oxygen Flow Rate 0 11/16/22 15:50 Pain Level 3 11/16/22 15:50 Lab/Test Results Lab/Test Results: Laboratory Tests Range/Units 11/16/22 16:10 WBC (4.4-10.8) 10^3/uL 8.47 RBC (3.93-5.22) 10^6/uL 4.78 Hgb (11.2-15.7) g/dL 14.3 Hct (36.0-46.0) % 43.8 MCV (80-95) fL 92 MCH (27.0-33.0) pg 29.9 MCHC (32.0-36.0) % 32.6 RDW (11.7-14.6) % 13.4 Plt Count (130-400) 10^3/uL 216 MPV (8.0-11.0) fL 11.0 Immature Gran % 0.2 Neutrophils % 75.4 Lymphocytes % 16.3 Monocytes % 6.1 Eosinophils % 1.5 Basophils % 0.5 Nucleated RBC % (0.0-0.3) % 0.0 Absolute Neutrophils (1.2-6.7) 10^3/uL 6.38 Absolute Lymphocytes (1.2-3.4) 10^3/uL 1.38 Absolute Monocytes (0.1-0.8) 10^3/uL 0.52 Absolute Eosinophils (0.0-0.7) 10^3/uL 0.13 Absolute Basophils (0.0-0.2) 10^3/uL 0.04 PAWSS Have you Been Recently Intoxicated or Drunk Within the Last 30 days?: No Have you Ever Experienced Previous Episodes of Alcohol Withdrawal?: No Have you ever Experienced Withdrawal Seizures?: No Have you ever Experienced Delirium Tremens(DT)s?: No Have you ever undergone Alcohol Rehabilitation Treatment (i.e, inpt ot outpatient treatment programs)?: No Have you ever Experienced Blackouts?: No Have you ever Combined Alcohol with other Downers within the last 90 days?: No Have you ever Combined Alcohol with any other Substance of Abuse during the last 90 days?: No Positive Blood Alcohol level on Presentation? [PCS.BAL]: No Evidence of Increased Autonomic Activity (i.e. HR>120, tremor, sweating, agitation, nausea)?: No Result: 0
[2022-11-16 16:38] LABS: ALT 28 U/L (14-59); AST 17 U/L (15-37); Albumin 4.5 g/dL (3.4-5.0); Alkaline Phosphatase 111 U/L (46-116); BUN 21 mg/dL (7-18); Bilirubin, Total 0.6 mg/dL (0.2-1.0); CREATININE 0.9 mg/dL (0.55-1.02); Calcium 9.7 mg/dL (8.5-10.1); Chloride 104 mmol/L (98-107); Estimated GFR 73.19 (mL/min/1.73m2); Glucose 91 mg/dL (74-106); Magnesium 2.3 mg/dL (1.8-2.4); Potassium 3.6 mmol/L (3.5-5.1); Sodium 143 mmol/L (136-145); Total Protein 8.8 g/dL (6.4-8.2); Troponin I < 50 ng/L (<or=60)
[2022-11-16 18:09] LABS: D-Dimer 400 ng/mlFEU (<500)
--- NOTE | 2022-11-16 19:15 | RT.EKG_ITS ---
APPROVED REPORT Exam: Resting ECG Reason for Exam: Chest Pain Patient Location: E HR:82 bpm ECG Measurements Heart Rate 82 AXIS VT 188 P 34 QRSd 93 QRS 78 QT 419 T 55 QTc 488 Conclusion Sinus rhythm...normal P axis, V-rate 60- 99
[2022-11-16 19:41] LABS: Troponin I < 50 ng/L (<or=60)
== END 2022-11-16 20:26 | disposition home or self-care (01) ==
PROVIDERS: Emergency Provider Registered Nurse Emergency; PCP Nurse Practitioner Family
DX: R07.9 Chest pain, unspecified (principal); R19.7 Diarrhea, unspecified; R10.13 Epigastric pain; Z86.73 Personal history of transient ischemic attack (TIA), and cerebral infarction without residual deficits
CPT/HCPCS: 80053; 93005; 99283; 71046; 83735; 84484; 85025; 85379; 93010; 99285

== ENCOUNTER → 2023-07-19 09:08 | Outpatient (CLI) | payer BC, SELFPAY ==
--- NOTE | 2023-07-19 09:22 | DI.RAD_ITS ---
Exam(s) XR ELBOW RT COMPLETE EXAM: XR ELBOW RT COMPLETE CLINICAL HISTORY: right elbow pain M25.521 PAIN IN RT ELBOW. TECHNIQUE: 2D digital imaging was performed. Three views. COMPARISON: No exams were available for comparison FINDINGS: BONES: No acute fracture is present. No bony destructive lesion is seen. JOINTS: The elbow is normally aligned. No joint effusion is seen. SOFT TISSUE: Normal. IMPRESSION: Unremarkable radiographs of the right elbow. DATA REPOSITORY: RADIATION DOSE DELIVERED:
== END ==
PROVIDERS: PCP Nurse Practitioner Family; Visit Provider Nurse Practitioner Family
DX: M25.521 Pain in right elbow (principal)
CPT/HCPCS: 73080

== ENCOUNTER → 2023-10-24 02:58 | Outpatient (CLI) | payer BC, SELFPAY ==
--- NOTE | 2023-10-24 15:59 | DI.MAMMO_ITS ---
Exam(s) MAMMO SCREENING EXAM: MAMMO SCREENING CLINICAL HISTORY: Z12.31 Screening; FA HX Breast CA Z80.3. TECHNIQUE: Bilateral full field digital CC and MLO mammographic images were obtained with 3D tomosyn thesis and utilizing computer aided detection (CAD). COMPARISON: Prior mammograms were reviewed. FINDINGS: There has been no significant change in the appearance and distribution of the fibroglandular tissue. There are no new spiculated masses nor malignant appearing microcalcification groups. There is no significant architectural distortion nor skin thickening-retraction. IMPRESSION: No radiographic evidence of malignancy. BI-RADS Category 1 - Negative Breast Density - Category B - Scattered areas of fibroglandular density Breast density Category C or D implies that the patient has dense breast tissue. Dense breast tissue can make it harder to find cancer on a mammogram. Dense breast tissue is also associated with an incr eased risk of breast cancer. This information about the result of the mammogram report was provided to the patient to raise their awareness. Use this report when you speak with the patient about their risks for breast cancer, which includes their family history. At that time, you may recommend additional screening tests (Ultrasoun d or MRI) as these tests may add significant information. A negative radiographic report should not delay biopsy if a dominant or clinically suspicious mass is present. Up to ten percent of cancers are not identified on mammography. A negative report may reinforce clinical impression. Adenosis and dense breasts may obscure an underlying neoplasm. False positive reports average 6 to 10%. Patient will receive a letter notifying them of these results.
== END ==
PROVIDERS: PCP Student in an Organized Health Care Education/Training Program; Visit Provider Obstetrics & Gynecology
DX: Z12.31 Encounter for screening mammogram for malignant neoplasm of breast (principal); Z80.3 Family history of malignant neoplasm of breast; R92.8 Other abnormal and inconclusive findings on diagnostic imaging of breast
CPT/HCPCS: 77063; 77067

== ENCOUNTER → 2023-10-31 01:30 | Outpatient (CLI) | payer BC, SELFPAY ==
--- NOTE | 2023-10-31 13:00 | DI.MRI_ITS ---
Exam(s) MR UPPER JOINT RT WO EXAM: MR UPPER JOINT RT WO CLINICAL HISTORY: ? PARTIAL TEAR,rt elbow pain, m25.521,s46.219a,strain. TECHNIQUE: Multiplanar multisequence MRI was performed. COMPARISON: No exams were available for comparison FINDINGS: BONES: There is no fracture or contusion pattern. JOINTS: The articular cartilage is unremarkable. No joint effusion is present. TENDONS: Common flexors: Unremarkable. Common extensors: There is hyperintense signal on the T2 weighted images seen in the common extensor tendon at its insertion site consistent with a partial tear. Biceps: Unremarkable. Triceps: Unremarkable. MUSCLES: Unremarkable. MEDIAN NERVE: Unremarkable on this noncontrast examination. ULNAR NERVE: Unremarkable on this noncontrast examination. SOFT TISSUES: There is mild edema seen in the soft tissues adjacent to the extensor tendon insertion site. No focal fluid collection is seen. LIGAMENTS: Ulnar collateral: Unremarkable. Radial collateral: Unremarkable. OTHER: IMPRESSION: There is a partial tear of the common extensor tendon at its insertion site with mild surrounding keira ma. DATA REPOSITORY:
== END ==
PROVIDERS: PCP Nurse Practitioner Family; Visit Provider Student in an Organized Health Care Education/Training Program
DX: S56.512A Strain of other extensor muscle, fascia and tendon at forearm level, left arm, initial encounter (principal); X58.XXXA Exposure to other specified factors, initial encounter
CPT/HCPCS: 73221

== ENCOUNTER 2024-07-16 15:20 | Outpatient (CLI) | payer BC, SELFPAY ==
--- NOTE | 2024-07-16 08:44 | DI.RAD_ITS ---
Exam(s) XR WRIST RT COMPL NAVICULAR EXAM: XR WRIST RT COMPL NAVICULAR CLINICAL HISTORY: eval radial sided wrist/hand pain. TECHNIQUE: 2D digital imaging was performed. Three views. COMPARISON: No exams were available for comparison FINDINGS: BONES: No acute fracture is present. No bony destructive lesion is seen. JOINTS: The carpal bones are normally aligned. No significant degenerative changes. SOFT TISSUE: Normal. IMPRESSION: Unremarkable radiographs of the right wrist. DATA REPOSITORY: RADIATION DOSE DELIVERED:
== END 2024-07-16 15:21 | disposition home or self-care (01) ==
LOC: DIORS 15:20
PROVIDERS: PCP Nurse Practitioner Family; Visit Provider Student in an Organized Health Care Education/Training Program
DX: M25.531 Pain in right wrist (principal); R20.2 Paresthesia of skin
CPT/HCPCS: 73110

== ENCOUNTER 2024-08-19 11:09 | Day surgery (SDC) | payer BC, SELFPAY ==
--- NOTE | 2024-08-19 09:51 | W.PM.DSUDISC ---
Date of service: 08/19/24 Time of Service: 09:52 Discharge Plan Disposition Patient Disposition: Home Condition: Good Discharge Details Reason For Visit: R ECTR Attending Provider: Marshall Lynn Primary Care Provider: Morris Fisher Home Meds and New Rx's Prescriptions: New acetaminophen 500 mg tablet 1,000 mg PO TID Qty: 90 0RF ibuprofen 600 mg tablet 600 mg PO TID PRN (Reason: pain) Qty: 90 0RF Continued loratadine [Claritin] 10 mg tablet 10 mg PO DAILY epinephrine [EpiPen] 0.3 mg/0.3 mL auto-injector 0.3 mg IM ONCE PRN (Reason: anaphylaxis) Qty: 1 3RF omega-3 fatty acids 500 mg capsule 500 mg PO DAILY magnesium oxide 250 mg magnesium tablet 250 mg PO DAILY calcium carbonate-vitamin D3 [Calcium 600 with Vitamin D3] 600 mg-12.5 mcg (500 unit) capsule 1 cap PO DAILY Estring 2 mg (7.5 mcg /24 hour) ring 1 vag ring vaginal [id number] mirabegron [Myrbetriq] 25 mg tablet extended release 24 hr 25 mg PO DAILY multivitamin [Once Daily] 1 EACH tablet 1 tab PO DAILY Discharge Instructions Stand Alone Forms: [place] C. Tunnel Release Activity:: Activity as Tolerated Remove Dressings/Wound Care:: 48 hours Shower/Bathe:: 48 hours Diet:: As Tolerated Discharge Orders Discharge Orders: Discharge Order (Routine); Ordered 08/19/24 Ordered By: Dominick Kirkpatrick DS: Diagnosis Discharge Diagnosis (1) Right carpal tunnel syndrome: Status: Acute
[2024-08-19 11:15] VITALS: BP 138/81; PULSE 78; RESP 18; TEMP 36.2; O2SAT 96
--- NOTE | 2024-08-19 11:34 | HPE_ITS ---
Assessment and Plan Assessment and plan (1) Arm paresthesia, right: Status: Acute (2) Right carpal tunnel syndrome: Status: Acute Assessment and plan: Kacy is a 64-year-old female who has carpal tunnel syndrome on the right side. Please see the previous office note for complete detailed history. She is here today for carpal tunnel release. I discussed the technical details of carpal tunnel release and that I perform an endoscopic release, but would make a larger, open, incision if necessary for visualization. I discussed the risks of the procedure to include, but not limited to, bleeding, infection, palmar pain, stiffness, damage to nerves, damage to vessels, damage to tendons, weakness, recurrence, and incomplete release. Given these risks, Kacy desires to proceed. History of Present Illness History of Present Illness Chief Complaint: Right hand numbness and pain Narrative: Kacy is here for her right carpal tunnel. Please see the previous office note for complete detailed history. She has had some mild cold symptoms over the past week. She denies any fevers or chills. She denies any productive cough. She has no chest pain or shortness of breath. Review of Systems All systems reviewed & are unremarkable except as noted in HPI and below PFSH All Active Problems Bicuspid aortic valve (Acute) Right carpal tunnel syndrome (Acute) S/P ECTR: 08/19/2024 Right wrist pain (Acute) Paresthesia of hand, bilateral (Acute) Medial epicondylitis of right elbow (Acute) Lateral epicondylitis of right elbow (Acute) Arm paresthesia, right (Acute) Tear of distal tendon of biceps (Acute ~05/17/23) Ascending aorta dilation (Chronic) Echo 2021 Prediabetes (Chronic) Hyperlipidemia (Chronic) Obstructive sleep apnea (Chronic) PSG 02/2022 Osteoarthritis (arthritis due to wear and tear of joints) (Chronic) History of stroke (Acute) 2019- discharged from neurology 2019 ([facility] [place]) Migraine (Chronic) Tubular adenoma of colon (Chronic ~2019) Medical History Right wrist tendinitis [facility] Generalized headaches Cellulitis Elbow locking Bilateral wrist pain (~06/15/19) Tension headache (07/01/18) Patellofemoral syndrome of right knee (07/01/18) Surgical History Tonsillectomy AGE 15 Colonoscopy - IV Sedation (05/11/13) DR. Vincent SIFUENTES; NORMAL EXAM Cervical Procedure AGE 33-CAUTERIZED CERVIX Family History Mother Diabetes Essential hypertension Depression Heart disease PACEMAKER Hyperlipidemia Stroke Breast cancer Invasive lobular Father , 83 Diabetes Essential hypertension Heart disease Hyperlipidemia Sister Diabetes Essential hypertension Depression MILD Hyperlipidemia Maternal Grandfather , 49 Heart disease Alcohol abuse Paternal Grandfather , 63 Alcohol abuse Heart disease Maternal Grandmother , 63 Diabetes Essential hypertension Heart disease Hyperlipidemia Stroke Paternal Grandmother , 88 Diabetes Heart disease Cancer Tumor in stomach Daughter Heart disease PACEMAKER Social History Smoking/Tobacco Use Status: Former Tobacco Use tobacco type: cigarettes Tobacco: How many years used: 0 Quit status: has quit before Second Hand Exposure: Yes (Past) Smoking risk assessment performed?: Yes Alcohol Intake: current Alcohol Intake frequency: a few times a month Alcohol type: hard liquor Drug use: Never Substance use type: does not use Caregiver/Support person: No Household members: spouse Housing: house Communication Needs: Corrective Lenses Do you need help understanding health information?: Never Pets and animals: No Sexually active: Yes Do you think of yourself as: straight/heterosexual Current gender identity: female What is your relationship status?: How often do you talk on the phone with friends or family?: three or more times per week How often do you get together with friends or relatives?: once per week How often do you attend gnosticism or mu-ism services?: 1-3 times per year Do you belong to any clubs or organized social groups?: no Panel score (0-1 are the most socially isolated patients): 2 What type of physical activity do you participate in: walking, weight lifting and yoga Duration: 30-45 minutes/day Frequency: daily Leslie/Taoist: Episcopal Special leslie needs: No Seatbelt use: always Helmet use: Yes Helmet use: always Drive intox or ride w/intox petrol tanker driver: No Do you feel safe at home: Yes Do you feel safe in your relationship?: Yes Meds Allergies and Home Medications Allergies Allergy/AdvReac Type Severity Reaction Status Date / Time beeswax Allergy Severe Anaphylaxsi Verified 08/19/24 11:29 s honey Allergy Severe Anaphylaxsi Verified 08/19/24 11:29 s venom-honey bee Allergy Severe Anaphylaxsi Verified 08/19/24 11:29 s adhesive Allergy Intermediate Skin Rash Verified 08/19/24 11:29 cephalexin (Cephalexin) Allergy Intermediate Skin Rash Verified 08/19/24 11:29 chlordiazepoxide Allergy Intermediate Skin Rash Verified 08/19/24 11:29 doxycycline Allergy Intermediate Skin Rash Verified 08/19/24 11:29 lavender (Lavandula Allergy Intermediate hives and Verified 08/19/24 11:29 angustifolia) swelling codeine (Codeine) AdvReac Intermediate Hallucinati Verified 08/19/24 11:29 ons lilacs AdvReac Severe swelling Uncoded 08/19/24 11:29 of face Home Medications ?Medication ?Instructions ?Recorded ?Confirmed ?Type multivitamin (Once Daily tablet) 1 tab PO DAILY 02/16/13 08/19/24 History omega-3 fatty acids 500 mg capsule 500 mg PO DAILY 08/03/21 08/19/24 History loratadine 10 mg tablet (Claritin) 10 mg PO DAILY 08/08/22 08/19/24 History calcium carbonate 600 mg-vitamin 1 cap PO DAILY 07/19/23 08/19/24 History D3 12.5 mcg (500 unit) capsule (Calcium 600 with Vitamin D3) magnesium oxide 250 mg PO DAILY 07/19/23 08/19/24 History estradiol 2 mg (7.5 mcg/24 hour) 1 vag ring vaginal [id number] 03/17/24 08/19/24 History vaginal ring (Estring) mirabegron 25 mg tablet,extended 25 mg PO DAILY 03/17/24 08/19/24 History release 24 hr (Myrbetriq) epinephrine 0.3 mg/0.3 mL 0.3 mg (0.3 mL) IM ONCE PRN 08/12/24 08/19/24 Rx injection, auto-injector (EpiPen) anaphylaxis #1 ea acetaminophen 500 mg tablet 1,000 mg (2 x 500 mg) PO TID #90 08/19/24 Rx tabs ibuprofen 600 mg tablet 600 mg PO TID PRN pain #90 tabs 08/19/24 Rx Exam Resp Effort & Inspection: normal respiratory effort Auscultation: clear to auscultation bilaterally Cardio Rate: regular rate Rhythm: regular rhythm Results Last Vital Signs Temp 36.2 C L 08/19/24 11:15 Pulse 78 08/19/24 11:15 Resp 18 08/19/24 11:15 BP 138/81 08/19/24 11:15 Pulse Ox 96 08/19/24 11:15
[2024-08-19] MEDS: Clindamycin 300 MG CAP 600 MG PO (11:39)
[2024-08-19] MEDS: Lidocaine 1% Multi-Dose W/EPI 1/100,000 50 ML VIAL (11:54)
[2024-08-19] MEDS: Sodium Bicarbonate 50 MEQ/50 ML VIAL (11:54)
[2024-08-19 12:20] VITALS: BP 120/59; PULSE 70; RESP 16; TEMP 36.4; O2SAT 97
--- NOTE | 2024-08-19 12:31 | ROE_ITS ---
Date of service: 08/19/24 Time of Service: 11:50 Operative Note Operative Note DATE OF PROCEDURE: 08/19/24 PRE-OP DIAGNOSIS: Right Carpal Tunnel Syndrome POST-OP DIAGNOSIS: same PROCEDURE: Right Endoscopic Carpal Tunnel Release SURGEON: Marshall Lynn ANESTHESIA TYPE: Local By Surgeon Refer to Anesthesia Record ESTIMATED BLOOD LOSS: 0 PATHOLOGY: none sent TOURNIQUET TIME: 13 COMPLICATIONS: None Patient was transported to: same day Patient's condition: stable Indications: I have seen Kacy in clinic for symptoms of carpal tunnel syndrome. The numbness, tingling, and pain limited function. Clinical exam findings confirmed the diagnosis of carpal tunnel syndrome. Nonoperative measures such as bracing, time, activity modifications had been tried but disability and pain persisted. I discussed carpal tunnel release with the patient. I reviewed the risks of the procedure to include, but not limited to, bleeding, infection, pain, stiffness, incomplete release, damage to nerves or vessels, persistent numbness, recurrence. Despite these risks, the patient elected to proceed. Findings: There was tightened carpal tunnel with notable amount of synovitis. This was dilated and released successfully with the endoscopic with increased space within the tunnel. The antebrachial fascia was released proximally freeing the median nerve at the wrist. Procedure Description: Kacy was greeted in the preoperative holding area where the correct side was identified and marked. The consent was reviewed with the patient and signed. The history and physical was updated. All questions were answered. Kacy was taken back to the operating room. The patient was placed into the supine position on the operating room table with the right arm on an arm board. A nonsterile tourniquet was placed high onto the arm. All bony prominences were well padded. Prophylactic antibiotics in the form of Cefazolin were administered. The right arm was then prepped with Chloraprep and draped in a standard fashion with stockinette and extremity drape. A timeout to confirm correct identity, side and site, procedure, allergies, anesthesia, and medical concerns was performed. The surgical site was marked in the volar wrist creases in line with the radial border of the fourth ray. This area was anesthetized with approximately 6cc of 1% Lidocaine. The limb was then exsanguinated with an Esmarch. The skin was incised with a 15 blade, approximately 1cm. The skin only was cut and the deeper tissue was dissected bluntly with a tenotomy scissor, avoiding passing nerve and venous structures. The fascia was penetrated and opened bluntly. A two-prong skin hook was placed under this proximal fascial edge. A series of hamate finders were used to identify and dilate the carpal tunnel. Synovial elevator was used to free synovial attachments to the underside of the transverse carpal ligament. My thumb was kept in the palm to zurdo the distal extent of the carpal tunnel and correctly position the hand. The [employer] endo scope was inserted without difficulty and without resistance. There was significant amount of synovitis seen within the carpal tunnel. This made visualization somewhat challenging initially. Utilizing synovial elevator once again to help elevate synovium. I also had to manipulate the hand with some extension in order to get visualization of the transverse carpal ligament. Identified the horizontally running fibers of the transverse carpal ligament (TCL). The distal extent of the TCL was visualized and the end of the scope palpated with the thumb. The blade was elevated and withdrawn from distal to proximal. The TCL was split into two flaps. The endoscope was reinserted to confirm complete release and any remnant ligament was incised. The scope was withdrawn and the proximal aspect of the carpal tunnel was grossly inspected and appeared release with the median nerve visible. The antebrachial fascia at the level of the wrist was then freed from the overlying skin and then the underlying median nerve with blunt dissection. This was transected longitudinally for about 3cm proximal to the wrist incision. The wound was then irrigated with easy flow of irrigant distally and proximally. The incision was closed with a single 4-0 Nylon suture. The wound was dressed with Xeroform, Gauze, Kerlix and Ag. The tourniquet was deflated with the initial dressing and held with some pressure. Blood flow returned easily to all digits with capillary refill less than 2 seconds. The patient tolerated the procedure well and was returned to the Same Day Surgery area in a stable condition suffering no known complication.
== END 2024-08-19 12:50 | disposition home or self-care (01) ==
LOC: SUR 11:10
PROVIDERS: PCP Nurse Practitioner Family; Visit Provider Student in an Organized Health Care Education/Training Program
PROC: 01N54ZZ Release Median Nerve, Percutaneous Endoscopic Approach (ICD-10-PCS; CPT 29848; principal; 2024-08-19 14:30)
DX: R20.2 Paresthesia of skin (principal); G56.01 Carpal tunnel syndrome, right upper limb
CPT/HCPCS: 29848; J2004

== ENCOUNTER 2024-11-19 02:35 | Outpatient (CLI) | payer OTHER, SELFPAY ==
--- NOTE | 2024-11-19 | DI.MAMMO_ITS ---
Exam(s) MAMMO SCREENING EXAM: MAMMO SCREENING CLINICAL HISTORY: SCREENING MAMMO Z12.31. TECHNIQUE: Bilateral full field digital CC and MLO mammographic images were obtained with 3D tomosyn thesis and utilizing computer aided detection (CAD). COMPARISON: Prior mammograms were reviewed. FINDINGS: There has been no significant change in the appearance and distribution of the fibroglandular tissue. No CAD designations. There are no new spiculated masses nor malignant appearing microcalcification groups. There is no significant architectural distortion nor skin thickening-retraction. IMPRESSION: No radiographic evidence of malignancy. BI-RADS Category 1 - Negative Breast Density - Category B - Scattered areas of fibroglandular density Breast density Category C or D implies that the patient has dense breast tissue. Dense breast tissue can make it harder to find cancer on a mammogram. Dense breast tissue is also associated with an incr eased risk of breast cancer. This information about the result of the mammogram report was provided to the patient to raise their awareness. Use this report when you speak with the patient about their risks for breast cancer, which includes their family history. At that time, you may recommend additional screening tests (Ultrasoun d or MRI) as these tests may add significant information. A negative radiographic report should not delay biopsy if a dominant or clinically suspicious mass is present. Up to ten percent of cancers are not identified on mammography. A negative report may reinforce clinical impression. Adenosis and dense breasts may obscure an underlying neoplasm. False positive reports average 6 to 10%. Patient will receive a letter notifying them of these results.
== END 2024-11-19 02:55 ==
PROVIDERS: PCP Nurse Practitioner Family; Visit Provider Obstetrics & Gynecology
DX: Z12.31 Encounter for screening mammogram for malignant neoplasm of breast (principal); R92.323 Mammographic fibroglandular density, bilateral breasts
CPT/HCPCS: 77063; 77067

== ENCOUNTER 2025-08-27 15:16 | Outpatient (CLI) | payer OTHER, BC, SELFPAY ==
[2025-08-27 14:47] LABS: Anion Gap 9.1 mmol/L (3-11); BUN 25 mg/dL (7-18); CO2 28.9 mmol/L (21.0-32.0); Calcium 9.2 mg/dL (8.5-10.1); Chloride 105 mmol/L (98-107); Estimated GFR 82.74 (mL/min/1.73m2); Glucose 92 mg/dL (74-106); Potassium 4.0 mmol/L (3.5-5.1); Sodium 143 mmol/L (136-145)
[2025-08-27 15:10] LABS: Hemoglobin A1C 5.5 % (<5.7)
== END 2025-08-27 15:17 | disposition home or self-care (01) ==
PROVIDERS: PCP Nurse Practitioner Family; Visit Provider Nurse Practitioner Family
DX: R73.03 Prediabetes (principal)
CPT/HCPCS: 36415; 80048; 83036